=== PATIENT | male | born 1955 | race Caucasian/White ===

== ENCOUNTER 2016-11-27 06:39 | Inpatient (IN) | payer BC, OTHER ==
[2016-11-04 08:29] VITALS: Ht 177.8 cm; Wt 97.4 kg
--- NOTE | 2016-11-04 09:02 | PAT Medication Instructions ---
Service Date Nov 04, 2016. Current Home Medication List Amlodipine (Norvasc), 5 MG PO QPM Benazepril Hcl (Benazepril), 10 MG PO QPM Fish Oil (Toledo-3), 2 TAB PO QPM Hydrochlorothiazide (Hctz), 25 MG PO QPM Ibuprofen Tab (Advil), 600 MG PO PRN Metformin Hcl (Glucophage), 500 MG PO BID Niacin (Niacin), 500 MG PO QPM Medication Instructions For Your Scheduled Surgery Ibuprofen Tab (Advil), 600 MG PO PRN (check with surgeon for instructions: - Hold the following medications 2 weeks prior to surgery: Fish Oil (Toledo-3), 2 TAB PO QPM - Hold the following medications 48 hours prior to surgery: Metformin Hcl (Glucophage), 500 MG PO BID - Hold the following medications as scheduled the night before surgery: Benazepril Hcl (Benazepril), 10 MG PO QPM Niacin (Niacin), 500 MG PO QPM - Take the following medications as scheduled the night before surgery: Hydrochlorothiazide (Hctz), 25 MG PO QPM Amlodipine (Norvasc), 5 MG PO QPM If you have any questions please call us at [phone] (Roselia Rodriguez PA-C) or [phone] or [phone]
--- NOTE | 2016-11-04 09:38 | DIAGNOSTIC IMAGING REPORT ---
CHEST PREADMISSION(PA/LAT) HISTORY: Preop. COMPARISON: None. FINDINGS: The lungs are clear. Cardiac silhouette is normal in size. No pleural effusions. No pneumothorax. IMPRESSION: No acute process. Electronically signed by: Manav Xavier M.D. 11/04/2016 9:36 AM Dictated Date/Time: 11/04/2016 9:35 AM
[2016-11-04 10:18] LABS: BASO % 0.4 %; BASO ABS # 0.02 K/uL (0-0.2); COMPLETE YES; EOS % 1.7 %; HEMATOCRIT 40.6 % (42-52); IG% 0.4 %; LYMPH % 38.3 %; LYMPH ABS # 2.08 K/uL (1.2-3.4); MEAN CELL VOLUME 81.9 fL (80-100); MEAN CORPUSCULAR HEMOGLOBIN 29.6 pg (25-34); MEAN CORPUSCULAR HGB CONC 36.2 g/dl (32-36); MEAN PLATELET VOLUME 9.3 fL (7.4-10.4); MONO % 8.5 %; NEUT % 50.7 %; PLATELET COUNT 221 K/uL (130-400); RED BLOOD COUNT 4.96 M/uL (4.7-6.1); WHITE BLOOD COUNT 5.43 K/uL (4.8-10.8)
[2016-11-04 10:31] LABS: INR 1.1 (0.9-1.1); PARTIAL THROMBOPLASTIN RATIO 1.3; PROTHROMBIN TIME (PATIENT) 11.6 SECONDS (9.0-12.0)
--- NOTE | 2016-11-22 01:06 | HISTORY & PHYSICAL EXAMINATION ---
DATE OF ADMISSION: 11/27/2016 CHIEF COMPLAINT: Left knee pain, discomfort and stiffness. HISTORY OF PRESENT ILLNESS: A 61-year-old gentleman who has had a long history of intermittent on and off knee pain and discomfort. He describes it has gotten worse over time. In the past, it was more stiffness, but now it has become more and more painful. The pain is mostly on the medial side of his knee. It is increased with weightbearing. The more active he is the more it hurts. He has tried multiple medicines without much relief. He has had injections in the past which have not worked and does not want any more. He would like to have his knee replaced. PAST MEDICAL HISTORY: 1. Hypertension. 2. Elevated cholesterol. 3. Sleep apnea. 4. Diabetes x1 year. 5. Mild obesity with BMI of 31. PAST SURGICAL HISTORY: Include: 1. Carpal tunnel release on the right. 2. Skin graft for left shoulder and neck. ALLERGIES: STATIN DRUGS. CURRENT MEDICINES: Include: 1. Hydrochlorothiazide 2. Niacin. 3. Benazepril 10 mg a day. 4. Ambien 5 mg a day. 5. Fish oil twice a day. 6. Metformin 500 mg twice a day. SOCIAL HISTORY: Significant for a 61-year-old male. He is . FAMILY HISTORY: Noncontributory. REVIEW OF SYSTEMS: Significant for diabetes. He has had diabetes for a year. Denies any chest pain or shortness of breath. No history of DVT or PE. PHYSICAL EXAMINATION: GENERAL: Reveals a healthy, pleasant middle-aged male, looking in pretty good health. HEENT: Benign. NECK: Supple. No lymphadenopathy. LUNGS: Clear to auscultation. HEART: Regular rate and rhythm. ABDOMEN: Soft, nontender, nondistended. EXTREMITIES: Grossly neurovascularly intact except as follows: Examination of left knee reveals the patient walks with a slight bit of a limp. He has got varus alignment to his knee. Small varus thrust. He is tender over the medial joint line with some bony hypertrophy. Range of motion about 5 degrees short of full extension, 120 degrees of flexion. Small knee effusion. No instability. No pain with hip motion. X-RAYS: X-rays of the left knee were reviewed. It shows advanced left knee medial compartment DJD. He has got complete loss of his medial joint space. He has got osteophytes off the medial femoral condyle and medial tibial plateau. He has got subchondral sclerosis. ASSESSMENT: A 61-year-old male with longstanding left knee degenerative joint disease with limited response to conservative care. Symptoms progressed and become more painful and he would like to have his knee replaced. He is not interested in further conservative care. PLAN: We will take him to the operating room and do a left total knee replacement. The risks and benefits of this procedure were explained to the patient including but not limited to DVT, PE, , infection, neurological injury, vascular injury, bleeding problem, pain, limited range of motion, stiffness, failure to relieve her symptoms, incomplete relief of symptoms, need for further surgery in the future, fracture, leg length inequality, nerve palsy and etc. The patient understands and agrees and informed consent was obtained. We did talk to him about holding his benazepril in morning of surgery and the metformin 2 days preop. He will likely need insulin sliding scale coverage while in the hospital. He is planning to be discharged to home with the [facility] home health program. LONG
[~2016-11-27] VITALS: Ht 177.8 cm; Wt 97.4 kg
[2016-11-27] VITALS (10 sets, daily range): BP systolic 107–166; BP diastolic 66–88; PULSE 66–79; TEMP 36.6–36.9; O2SAT 93–98
[~2016-11-27 06:39] MED LIST: ACETAMINOPHEN 500 MG TAB PO SCH; AMLO-110 PO; BUPIVACAINE LIPOSOME 266 MG, BUPIVACAINE/EPINEPHRINE INJ 50 ML, SODIUM CHLORIDE 0.9% PF... INFIL SCH; CEFAZOLIN 2000 MG/60 ML D5W 60 ML IV SCH; FAMOTIDINE 20 MG TAB PO SCH; GABAPENTIN 300 MG CAP PO SCH; GLC/500 PO; HYDR25TA4 PO; IBUP-103 PO; LACTATED RINGER'S 1000ML 1,000 ML IV SCH; LACTATED RINGER'S 1000ML 500 ML IV ONE; LACTATED RINGER'S 1000ML IV SCH; LTN/10 PO; METOCLOPRAMIDE HCL 10 MG TAB PO SCH; NIAC500T11 PO; OMEG10007 PO; SCOPOLAMINE 1.5 MG TDSY TD SCH; TRANEXAMIC ACID INJ 1,000 MG in SODIUM CHLORIDE 0.9% 100ML 100 ML IV SCH
--- NOTE | 2016-11-27 06:51 | History & Physical Bridge Note ---
H&P Re-Evaluation Bridge Note: I have examined the patient, reviewed the History & Physical and in the interval since the performance of the History & Physical I have noted the following changes of clinical significance: No changes noted
[2016-11-27] MEDS ORDERED: BUPIVACAINE 0.5 % 5 MG/1 ML PF 10ML VIAL ONE (07:11)
[2016-11-27] MEDS ORDERED: BUPIVACAINE 0.25% 30 ML VIAL ONE (07:12)
[2016-11-27] MEDS ORDERED: MIDAZOLAM HCL 1 MG/ML 2ML VIAL ONE ×2 (07:49→08:36)
[2016-11-27] MEDS ORDERED: SODIUM CHLORIDE 0.9% PF 50 ML VIAL ONE (08:54)
[2016-11-27] MEDS ORDERED: BUPIVACAINE/EPINEPHRINE 0.25% 1:200,000 30 ML VIAL ONE (08:54)
[2016-11-27] MEDS ORDERED: BUPIVACAINE LIPOSOME 1/3% 266 MG/20 ML VIAL INFIL ONE (08:54)
[2016-11-27] MEDS ORDERED: BACITRACIN 50000 UNIT VIAL ONE (08:54)
[2016-11-27] MEDS ORDERED: PROPOFOL IV EMULSION 10 MG/ML 20 ML VIAL IV ONE (10:10)
[2016-11-27] MEDS ORDERED: LIDOCAINE HCL 2% 2 ML VIAL (20MG/ML) ONE (10:10)
[2016-11-27] MEDS ORDERED: HYDROmorphone INJ 1 MG/ML SYR IV PRN (10:15)
[2016-11-27] MEDS ORDERED: FENTANYL CITRATE INJ 50 MCG/1 ML 2 ML VIAL IV PRN (10:15)
[2016-11-27] MEDS ORDERED: ONDANSETRON INJ 2 MG/ML 2 ML VIAL IV PRN ×2 (10:15→11:00)
[2016-11-27] MEDS ORDERED: LABETALOL HCL IV 5 MG/ML 20ML IV PRN (10:15)
[2016-11-27] MEDS ORDERED: ATROPINE SULFATE 0.1 MG/ML 5ML SYR IV PRN (10:15)
[2016-11-27] MEDS ORDERED: EpHEDrine SULFATE INJ 50 MG/ML AMP IV PRN (10:15)
[2016-11-27] MEDS ORDERED: MEPERIDINE HCL 25 MG/ML CARP IV PRN (10:15)
--- NOTE | 2016-11-27 10:47 | [facility] Post Operative Brief Note ---
Immediate Operative Summary Operative Date Nov 27, 2016. Pre-Operative Diagnosis Left Knee Degenerative Joint Disease Post-Operative Diagnosis Left Knee Degenerative Joint Disease Procedure(s) Performed Left Total Knee Arthroplasty, Cemented Surgeon Dr. Alvarado Technical Assistance Consultant Surgeon(s) Wesly David PA-C Estimated Blood Loss 50mL Findings Left Knee DJD Fluids (cc crystalloids) 1500 cc Specimens A: Left Knee Bone and Tissue Drains None Anesthesia Spinal Complication(s) None Disposition Recovery Room / PACU
[2016-11-27] MEDS ORDERED: GLUCOSE 10 TABS/TUBE PO PRN (11:00)
[2016-11-27] MEDS ORDERED: BISACODYL 10 MG SUPP PR PRN (11:00)
[2016-11-27] MEDS ORDERED: METOCLOPRAMIDE HCL INJ 5 MG/ML 2 ML VIAL IV PRN (11:00)
[2016-11-27] MEDS ORDERED: MAGNESIUM HYDROXIDE SUSP 30 ML UDC PO PRN (11:00)
[2016-11-27] MEDS ORDERED: ZOLPIDEM TARTRATE 5 MG TAB PO PRN (11:00)
[2016-11-27] MEDS ORDERED: SILVER SULFADIAZINE 1% CR 50 GM JAR EXT PRN (11:00)
[2016-11-27] MEDS ORDERED: ALUMINUM/MAGNESIUM/SIMETH (MAALOX MAX) 30 ML UDC PO PRN (11:00)
[2016-11-27] MEDS ORDERED: GLUCAGON FOR INJ 1 MG VIAL SQ PRN (11:00)
[2016-11-27] MEDS ORDERED: GLUCOSE 40% GEL 15 GM TUBE PO PRN (11:00)
[2016-11-27] MEDS ORDERED: TAMSULOSIN HCL 0.4 MG CAP PO PRN (11:00)
[2016-11-27] MEDS ORDERED: DEXTROSE 50% 50 ML SYR IV PRN (11:00)
--- NOTE | 2016-11-27 11:10 | DIAGNOSTIC IMAGING REPORT ---
LEFT KNEE 1 OR 2 VIEWS ROUTINE CLINICAL HISTORY: Left knee degenerative joint disease. Arthroplasty. COMPARISON: None FINDINGS: Alignment of the total left knee arthroplasty is anatomic. There is no fracture or unexpected radiopaque foreign body. There are skin ritesh. IMPRESSION: Expected findings following total left knee arthroplasty. Electronically signed by: Wilbur Ambriz M.D. 11/27/2016 11:09 AM Dictated Date/Time: 11/27/2016 11:07 AM
--- NOTE | 2016-11-27 11:14 | OPERATIVE REPORT ---
DATE OF OPERATION: 11/27/2016 SURGEON: Dr. Toney Alvarado. MERCHANDISE PROCESSOR: EZ Castellon PREOPERATIVE DIAGNOSIS: Left knee degenerative joint disease. POSTOPERATIVE DIAGNOSIS: Same. PROCEDURE PERFORMED: Left cemented posterior stabilized total knee arthroplasty. COMPLICATIONS: None. ESTIMATED BLOOD LOSS: 30 mL. FLUID REPLACEMENT: 1500 mL crystalloid fluid replacement. ANESTHESIA: Spinal with adductor canal block. DRAINS: None. SPECIMENS: Left knee sent for pathology. OPERATIVE INDICATIONS: The patient is a 61-year-old male who had a long history of left knee pain and discomfort. He describes it has gotten worse over the years. He has been through extensive conservative treatment, which was not really very effective. He just put up with the pain for the past several years. It has become more unbearable and he would like to proceed with total knee arthroplasty. OPERATIVE FINDINGS: Operative findings revealed advanced left knee DJD. He had pretty extensive grade 4 changes of the medial femoral condyle and the anterior medial tibial plateau. He had grade 4 changes of the patellofemoral joint. Moderate size joint effusion. Varus alignment to his knee. OPERATIVE IMPLANTS: Operative implants consisted of: 1. A Biomet Vanguard size 67.5 left posterior stabilized femoral component. 2. Biomet size 71 tibial tray. 3. A 12-mm posterior stabilized polyethylene insert. 4. A 34 x 8.5 all poly patella. OPERATIVE PROCEDURE: The patient was taken to the operating room, identified and placed on the operating table in the supine position. All contact areas were appropriately padded. IV antibiotics were provided by anesthesia team. A spinal anesthetic and adductor canal block had been provided in the holding area. Khan catheter was placed in sterile fashion. Left thigh tourniquet was then placed and left lower extremity was then prepped and draped in the usual sterile fashion. The left leg was elevated and exsanguinated with Esmarch and tourniquet was placed at 300 mmHg. An anterior approach to the left knee was then performed through a longitudinal incision centered over the patella. Sharp dissection was carried out through the subcutaneous tissues and down to the level of the extensor mechanism. A medial parapatellar arthrotomy incision was made. Some subperiosteal dissection was carried out medially. The fat pad was resected from beneath the patellar tendon. The lateral patellofemoral ligament was released. The patella was everted and knee was flexed. The osteophytes were taken off the distal femur. The ACL and PCL were then released from the distal femur and the tibia subluxated anteriorly. The external tibial alignment jig was then placed in the anterior face of the tibia and adjusted 16 mm medially. Proximal tibial cut was made to remove about a millimeter of bone from the most deficient aspect of the medial tibial plateau. The tibia was then sized to a size 71. Attention was then drawn to the femur. The distal femur was entered with a sharp drill bit. Intramedullary canal was suctioned. A left 6-degree valgus cutting guide was placed. Distal femoral cutting block was pinned in place. Distal femoral cut was made to take an additional 3 mm of bone off the distal femur. The femur was then sized to a size 67.5. We did downsize this just slightly. The AP cutting block was pinned parallel to the epicondylar axis, which was 5 degrees of external rotation. The anterior cut, anterior chamfer, posterior cut, and posterior chamfer cuts were made. Box cutting guide was placed and adjusted slightly lateral and the box cut was made. The knee was flexed. The remnants of the medial and lateral meniscus were excised. The osteophytes were taken off the posterior aspect of the femur. Trial femoral component was placed. Tibial tray was pinned in maximum external rotation and the drill and stem punch were used to create defect in proximal tibia for the tibial tray. The knee was then trialed and the 12-mm insert fit most appropriately. Attention was then drawn to the patella. The patella was cleaned of all soft tissues. Patella thickness measured 23 mm in thickness and it was cut down to 14. It was sized to a size 34 patella. Lug holes were drilled for a 34 patella. Lateral osteophyte was removed. Patella button was placed. Knee was taken through range of motion and the patella tracked nicely with no thumbs test. Attention was then drawn toward placement of the permanent components. All trial components were removed. A bone plug was placed in the distal femur to limit blood loss. A double batch of Palacos G cement was mixed. A left size 67.5 posterior stabilized femoral component, size 71 tibial tray, a 12-mm posterior stabilized polyethylene insert, and a 34 x 8.5 all poly patella then cemented in place. Knee was brought out into full extension until cement hardened. A final cement check was then performed. Pericapsular tissues were injected with a total of 100 mL of a combination of 20 mL of Exparel, 30 mL normal saline, and 50 mL of 0.25% Marcaine with epinephrine. The patient did receive 1 gram of tranexamic acid. The tourniquet was then let down for final tourniquet time of 57 minutes. Hemostasis was assured with use of electrocautery. The extensor mechanism was then closed with a combination of #1 PDS suture and #1 Vicryl suture in a [id number] fashion. Extensor mechanism was checked and found to be intact. The subcutaneous tissues were then closed with 2-0 Dexon suture in a buried interrupted fashion. Skin was closed skin ritesh. Leg was then cleaned and dried and a sterile dressing of Xeroform, 4 x 4, sterile cast padding and Philip bandage were applied. The patient then transferred to the recovery room in stable condition. The patient tolerated the procedure well with no complications. All needle and sponge counts were correct at the end of the operation. I attest to the content of the Intraoperative Record and any orders documented therein. Any exceptions are noted below. MTDD
[2016-11-27] MEDS: ACETAMINOPHEN 500 MG TAB PO SCH ×2 (13:27→22:06)
[2016-11-27] MEDS: SODIUM CHLORIDE 0.9% 1000ML 1,000 ML IV SCH ×2 (13:27→20:41)
[2016-11-27] MEDS: KETOROLAC TROMETHAMINE 30 MG/ML VIAL IV. SCH ×3 (13:28→23:48)
--- NOTE | 2016-11-27 13:28 | PROGRESS NOTE ---
DATE: 11/27/2016 SUBJECTIVE: A 61-year-old gentleman postop from a left knee replacement. He is doing well. Not having any pain yet. Just starting to get a little function in his foot. Denies any chest pain or shortness of breath. Not feeling dizzy or lightheaded. OBJECTIVE: VITAL SIGNS: Temperature is 36.9. Vital signs stable. GENERAL: Reveals a pleasant, middle-aged male. He is lying in bed, looks pretty comfortable. He is talking to his family. LUNGS: Clear to auscultation. HEART: Has a regular rate and rhythm. ABDOMEN: Soft, nontender, nondistended. EXTREMITIES: Grossly neurovascularly intact except as follows: Examination of the left lower extremity reveals the leg is well aligned. Dressing is clean, dry, and intact. He is just starting to get a little bit of wiggling of his toes. Cap brisk refill with good distal pulses. X-RAYS: X-rays of the knee were reviewed. It shows a cemented posterior stabilized total knee arthroplasty be in good position. No signs of problems. ASSESSMENT: A 61-year-old gentleman postop from a left knee replacement, doing well. Just starting to get the function back in his leg. His pain is controlled. PLAN: 1. DVT prophylaxis including thigh-high TEDs, SCDs, and aspirin twice a day. 2. PT/OT. Weight bear as tolerated. Left total knee protocol. 3. Pain control. Doing well with current pain regimen. 4. IV antibiotics x24 hours. 5. Disposition. He is planning to be discharged to home with home health once medically stable and recovered.
[2016-11-27] MEDS: INSULIN HUMAN REGULAR SC SCH ×3 (13:32→20:40)
--- NOTE | 2016-11-27 13:42 | Anesthesiology Progress Note ---
Anesthesia Post Op Note Date & Time Nov 27, 2016 at 13:41 Vital Signs Pain Intensity: 0.0 Vital Signs Past 12 Hours Date Time Temp Pulse Resp B/P Pulse Ox O2 Delivery O2 Flow Rate FiO2 11/27/16 13:00 36.9 66 18 160/81 97 Nasal Cannula 2.0 11/27/16 12:29 36.7 72 16 131/84 96 Nasal Cannula 2.0 11/27/16 12:23 Nasal Cannula 2.0 11/27/16 12:19 36.9 76 16 111/69 97 Nasal Cannula 2.0 11/27/16 12:17 97 Nasal Cannula 2.0 11/27/16 11:51 114/68 11/27/16 11:48 70 16 96 11/27/16 11:48 70 16 11/27/16 11:46 115/71 11/27/16 11:43 68 18 11/27/16 11:43 37.3 11/27/16 11:43 70 18 96 11/27/16 11:40 132/73 11/27/16 11:38 68 16 97 11/27/16 11:38 69 16 11/27/16 11:37 69 21 11/27/16 11:37 70 21 95 11/27/16 11:36 111/74 11/27/16 11:32 74 16 97 11/27/16 11:32 72 16 11/27/16 11:31 136/85 11/27/16 11:27 73 14 11/27/16 11:27 73 14 97 11/27/16 11:26 118/68 11/27/16 11:22 80 20 11/27/16 11:22 83 20 96 11/27/16 11:21 113/66 11/27/16 11:17 79 15 11/27/16 11:17 80 15 96 11/27/16 11:15 108/70 11/27/16 11:12 78 18 98 11/27/16 11:12 76 18 11/27/16 11:11 116/71 11/27/16 11:07 81 14 100 11/27/16 11:07 82 14 11/27/16 11:06 121/61 11/27/16 11:05 75 13 11/27/16 11:05 75 13 99 11/27/16 11:00 80 20 11/27/16 11:00 83 20 112/72 100 11/27/16 10:55 95 18 114/71 100 11/27/16 10:55 96 18 11/27/16 10:51 108/66 11/27/16 10:50 37.5 80 16 108/66 100 Mask 10 11/27/16 07:25 98 Room Air 11/27/16 07:22 36.8 79 16 166/87 98 Room Air Notes Mental Status: alert / awake / arousable, participated in evaluation Pt Amnestic to Procedure: Yes Nausea / Vomiting: adequately controlled Pain: adequately controlled Airway Patency, RR, SpO2: stable & adequate BP & HR: stable & adequate Hydration State: stable & adequate Anesthetic Complications: no major complications apparent
[2016-11-27] MEDS: CEFAZOLIN IV 2,000 MG in DEXTROSE 5% 50ML 50 ML IV SCH ×2 (15:52→23:48)
[2016-11-27] MEDS: CHECK SCOPOLAMINE PATCH PLACEMENT SCH ×2 (15:52→23:33)
[2016-11-27] MEDS ORDERED: TRANEXAMIC ACID INJ 1,000 MG in SODIUM CHLORIDE 0.9% 100ML 100 ML IV SCH (17:00)
[2016-11-27] MEDS: FERROUS GLUCONATE 324 MG TAB PO SCH (17:48)
[2016-11-27] MEDS: OXYCODONE HCL IR 5 MG TAB (IMMEDIATE RELEASE) PO PRN (19:13)
[2016-11-27] MEDS: HYDROCHLOROTHIAZIDE 25 MG TAB PO SCH (20:38)
[2016-11-27] MEDS: ENALAPRIL MALEATE 10 MG TAB PO SCH (20:39)
[2016-11-27] MEDS: NIACIN 500 MG TAB IMMEDIATE RELEASE PO SCH (20:41)
[2016-11-27] MEDS: AMLODIPINE BESYLATE 5 MG TAB PO SCH (20:41)
[2016-11-27] MEDS: DOCUSATE SODIUM 100 MG CAP PO SCH (20:41)
[2016-11-27] MEDS: ASPIRIN 325 MG ECTAB PO SCH (20:41)
[2016-11-27] MEDS: TAPENTADOL ER 50 MG TABCR PO SCH (20:44)
[2016-11-28 03:56] VITALS: BP 119/73; PULSE 60; TEMP 36.7; O2SAT 96
[2016-11-28] MEDS: SODIUM CHLORIDE 0.9% 1000ML 1,000 ML IV SCH (04:42)
[2016-11-28] MEDS: ACETAMINOPHEN 500 MG TAB PO SCH ×3 (06:24→21:46)
[2016-11-28] MEDS: KETOROLAC TROMETHAMINE 30 MG/ML VIAL IV. SCH ×4 (06:25→23:16)
[2016-11-28 06:37] LABS: HEMATOCRIT 33.1 % (42-52); MEAN CELL VOLUME 84.9 fL (80-100); MEAN CORPUSCULAR HEMOGLOBIN 29.7 pg (25-34); MEAN PLATELET VOLUME 8.9 fL (7.4-10.4); PLATELET COUNT 183 K/uL (130-400)
[2016-11-28 06:51] VITALS: BP 109/66; PULSE 61; TEMP 36.7; O2SAT 97
[2016-11-28 07:07] LABS: BUN/CREATININE RATIO 13.3 (10-20); CALCIUM 8.2 mg/dl (8.5-10.1); CREATININE 1.1 mg/dl (0.60-1.40); POTASSIUM 3.5 mmol/L (3.5-5.1)
[2016-11-28] MEDS: CHECK SCOPOLAMINE PATCH PLACEMENT SCH ×3 (07:42→23:18)
[2016-11-28] MEDS: OXYCODONE HCL IR 5 MG TAB (IMMEDIATE RELEASE) PO PRN ×3 (07:47→23:52)
--- NOTE | 2016-11-28 08:03 | PROGRESS NOTE ---
DATE: 11/28/2016 SUBJECTIVE: A 61-year-old gentleman postop day #1 from a left knee replacement. He is doing pretty well. Some moderate amount of pain overnight, doing better this morning. Denies any chest pain or shortness of breath. Not feeling dizzy or lightheaded. OBJECTIVE: VITAL SIGNS: Temperature 36.7. Vital signs stable. GENERAL: Reveals a healthy, pleasant, middle-aged male. He is sitting up in bed, looks pretty comfortable. EXTREMITIES: Examination of the left leg reveals the dressing to be clean, dry and intact. Leg is well aligned. He can dorsiflex and plantarflex his foot appropriately. He is neurologically intact. LABORATORY DATA: Hemoglobin 11.6. Hematocrit 33.1. Electrolytes are stable. ASSESSMENT: A 61-year-old gentleman postop day #1 from left knee replacement, doing pretty well. Pain is controlled. PLAN: 1. DVT prophylaxis including thigh-high TEDs, SCDs, and aspirin twice a day. 2. PT/OT. Weightbearing as tolerated. Left total knee protocol. 3. Pain control, doing pretty well with current pain regimen. 4. Disposition: He is hoping to be discharged to home with some home health once adequately recovered.
--- NOTE | 2016-11-28 08:13 | Anesthesiology Progress Note ---
Anesthesia Post Op Note Date & Time Nov 28, 2016 at 08:12 Vital Signs Vital Signs Past 12 Hours Date Time Temp Pulse Resp B/P Pulse Ox O2 Delivery O2 Flow Rate FiO2 11/28/16 06:51 36.7 61 17 109/66 97 Room Air 11/28/16 03:56 36.7 60 18 119/73 96 Room Air 11/27/16 23:01 36.6 66 16 107/66 94 Room Air Notes Mental Status: alert / awake / arousable, participated in evaluation Pt Amnestic to Procedure: Yes Nausea / Vomiting: adequately controlled Pain: adequately controlled Airway Patency, RR, SpO2: stable & adequate BP & HR: stable & adequate Hydration State: stable & adequate Anesthetic Complications: no major complications apparent
[2016-11-28] MEDS: ASPIRIN 325 MG ECTAB PO SCH ×2 (09:04→21:44)
[2016-11-28] MEDS: MULTIVITAMIN TAB PO SCH (09:04)
[2016-11-28] MEDS: FERROUS GLUCONATE 324 MG TAB PO SCH ×3 (09:04→18:14)
[2016-11-28] MEDS: PANTOprazole SOD 40 MG TAB PO SCH (09:04)
[2016-11-28] MEDS: DOCUSATE SODIUM 100 MG CAP PO SCH ×2 (09:04→21:44)
[2016-11-28] MEDS: TAPENTADOL ER 50 MG TABCR PO SCH ×2 (09:08→21:43)
[2016-11-28] MEDS: INSULIN HUMAN REGULAR SC SCH ×4 (09:08→21:54)
[2016-11-28 10:52] VITALS: BP 109/71; PULSE 71; TEMP 36.8; O2SAT 95
[2016-11-28 15:05] VITALS: BP 142/77; PULSE 59; TEMP 36.8; O2SAT 98
[2016-11-28 15:20] VITALS: BP 106/66; PULSE 91; TEMP 36.9; O2SAT 98
[2016-11-28] MEDS ORDERED: ASPEC325 PO (21:27)
[2016-11-28] MEDS ORDERED: OXYC-57 PO (21:27)
[2016-11-28] MEDS ORDERED: MORP15TA19 PO (21:27)
--- NOTE | 2016-11-28 21:32 | Discharge Instructions ---
Discharge Instructions Date of Service Nov 28, 2016. Admission Reason for Admission: Left Knee Degenerative Joint Disease Discharge Discharge Diagnosis / Problem: Left Knee Replacement Discharge Goals Goal(s): Decrease discomfort, Improve function, Increase independence, Improve disease control, Therapeutic intervention Activity Recommendations Activity Limitations: per Instructions/Follow-up section Weightbearing Status: Left weightbearing . Instructions / Follow-Up Instructions / Follow-Up ACTIVITY RECOMMENDATIONS: Physical Therapy: * You will go to physical therapy three times each week for four to six weeks after your surgery in order to regain your knee range of motion and to retrain your knee to work properly. * It is just as important to make sure you are getting your knee perfectly straight as it is to regain your knee bend. * Taking a pain pill an hour before therapy can help you have a more productive and comfortable therapy session. Home Exercise: * You were shown a series of exercises (heel props, heel slides, etc.) in the hospital. Do these exercises three to four times each day including the exercises you were shown in physical therapy. Walking: * Get up and walk several times each day. For the first four weeks, try not to stand or walk for more than one hour at a time. If you do stand or walk for more than one hour, you will not hurt anything, but your knee and leg will likely swell. * As you feel comfortable, you may change from the walker or crutches to a cane and then to independent walking. MEDICATIONS: New Medicine: * You will likely be taking one or more of these medications: 1. MS Contin - A long-acting pain medication. Take 1 tablet twice a day for the first ten days to decrease your baseline level of pain. 2. Percocet - A quick and shorter-acting pain medication. Take one to two tablets every four to six hours to lessen your pain. 3. Aspirin - Thins your blood to lessen the chance of forming a blood clot. * The most common side effects of pain medicine and iron are nausea and constipation. If nausea or constipation is too much of a problem or if you have any questions about your new medicines or doses, call [facility] at [phone]. We will try to help you manage these issues. VERY IMPORTANT TO READ AND REVIEW" Pain: * The immediate post-operative period after knee replacement surgery is often quite painful. * You are given a prescription for pain medicine. You should take it, as directed, when you need it, especially before physical therapy and before going to bed. Pain that interferes with sleep is very common and can last several months. * You will likely need pain medicine for the first four to six weeks. It will not stop all of the pain. The pain will lessen and as you feel better, you may change to milder pain medicine such as Tylenol. * The most common side effects of pain medicine are nausea and constipation, so don't take more than you need. SPECIAL CARE INSTRUCTIONS: TEDs/Elastic Stockings: * The white elastic stockings help limit swelling and prevent blood clots from forming in your legs. The more you wear them, the more they work. * Wear them for six weeks after knee replacement surgery and four weeks after partial knee replacement. Prevention of Infection: * Take antibiotics one hour before any dental cleaning, dental work, urological procedure, gastrointestinal procedure or any invasive surgery in order to prevent your new joint from getting infected. * You may get the antibiotics from the doctor performing the procedure or you may call our office at before and we will call in a prescription to the pharmacy of your choice. Things to Watch For: * Drainage from the incision site that occurs more than one week after your surgery. * Severely increased knee/leg pain or swelling. * Increased redness at the incision site. * Fever above 102 degrees Fahrenheit. * Unusual chest pain or shortness of breath. * Unusual pain or burning with urination. Call [facility] at with any of the above problems or if you have any questions about your medicines or recovery. FOLLOW UP VISIT: Make an appointment to see your doctor for approximately two weeks after surgery for a progress check and staple removal by calling the office at . Current Hospital Diet Patient's current hospital diet: Diabetes Type 2 Diet Discharge Diet Recommended Diet: Diabetes Type 2 Diet Procedures Procedures Performed: Left Total Knee Arthroplasty, Cemented Pending Studies Studies pending at discharge: no Medical Emergencies . Who to Call and When: Medical Emergencies: If at any time you feel your situation is an emergency, please call [phone] immediately. . Non-Emergent Contact Non-Emergency issues call your: Surgeon . "Provider Documentation" section prepared by Toney Alvarado. . VTE Core Measure Inpt VTE Proph given/why not?: Other Anticoagulation, T.E.D. Stockings, SCD's
[2016-11-28] MEDS: AMLODIPINE BESYLATE 5 MG TAB PO SCH (21:43)
[2016-11-28] MEDS: HYDROCHLOROTHIAZIDE 25 MG TAB PO SCH (21:44)
[2016-11-28] MEDS: ENALAPRIL MALEATE 10 MG TAB PO SCH (21:44)
[2016-11-28] MEDS: NIACIN 500 MG TAB IMMEDIATE RELEASE PO SCH (21:45)
[2016-11-28] MEDS: MoRPHine SULFATE 2 MG/ML CARP IV PRN ×2 (21:47→23:17)
[2016-11-28 23:05] VITALS: BP 129/70; PULSE 71; TEMP 36.9; O2SAT 96
[2016-11-29] MEDS: ACETAMINOPHEN 500 MG TAB PO SCH (06:18)
[2016-11-29] MEDS: KETOROLAC TROMETHAMINE 30 MG/ML VIAL IV. SCH (06:19)
[2016-11-29] MEDS: OXYCODONE HCL IR 5 MG TAB (IMMEDIATE RELEASE) PO PRN (06:20)
[2016-11-29 06:34] VITALS: BP 143/76; PULSE 77; TEMP 36.6; O2SAT 94
[2016-11-29 07:13] VITALS: BP 143/76; PULSE 77; TEMP 36.6; O2SAT 94
[2016-11-29] MEDS: MULTIVITAMIN TAB PO SCH (07:17)
[2016-11-29] MEDS: ASPIRIN 325 MG ECTAB PO SCH (07:18)
[2016-11-29] MEDS: PANTOprazole SOD 40 MG TAB PO SCH (07:18)
[2016-11-29] MEDS: FERROUS GLUCONATE 324 MG TAB PO SCH (07:18)
[2016-11-29] MEDS: DOCUSATE SODIUM 100 MG CAP PO SCH (07:18)
[2016-11-29] MEDS: INSULIN HUMAN REGULAR SC SCH (07:26)
[2016-11-29] MEDS: TAPENTADOL ER 50 MG TABCR PO SCH (07:27)
--- NOTE | 2016-11-29 08:48 | PROGRESS NOTE ---
DATE: 11/29/2016 DATE: 11/29/2016. SUBJECTIVE: A 61-year-old gentleman postop day 2 from a left knee replacement. He is doing pretty well. A little bit more pain last night, but doing better this morning. No chest pain or shortness of breath. Not feeling dizzy or lightheaded. OBJECTIVE: VITAL SIGNS: Temperature 36.6. Vital signs stable. PHYSICAL EXAMINATION: GENERAL: Reveals a healthy, pleasant, middle-aged male. He is sitting up in his bed and looks pretty comfortable. EXTREMITIES: Examination of the left leg reveals the dressing to be in place. Just a trace bit of bloody drainage. Calf is soft and supple. He can dorsiflex and plantarflex his foot appropriately. He is neurologically intact. ASSESSMENT: A 61-year-old gentleman postop day 2 from a left knee replacement, doing pretty well. PLAN: 1. DVT prophylaxis including thigh-high TEDs, SCDs, and aspirin twice a day. 2. PT/OT. Weight bear as tolerated. Left total knee protocol. 3. Pain control. Doing well with current pain regimen. 4. Disposition. Plan to discharge to home with some home health later today.
--- NOTE | 2016-12-11 09:24 | DISCHARGE SUMMARY ---
ADMITTING PHYSICIAN AND SURGEON: Dr. Alvarado. ADMITTING DIAGNOSIS: Left knee degenerative joint disease. SURGERY PERFORMED: Left total knee arthroplasty. SECONDARY DIAGNOSES: Include hypertension, elevated cholesterol, sleep apnea, diabetes, and obesity. CONSULTS: None obtained. HISTORY AND PHYSICAL EXAMINATION: Well documented in the patient's chart. HOSPITAL COURSE: The patient was admitted on 11/27/2016, underwent total knee arthroplasty, tolerated the procedure well. There were no complications. He was transferred to the PACU postoperatively and later to the orthopedic floor for further care. He was given Ancef for antibiotic prophylaxis and OCHOA stockings, SCDs and aspirin for DVT prophylaxis. Hemoglobin, hematocrit and vital signs were monitored during his hospital stay and remained stable. He developed some mild postoperative anemia, did not require any blood transfusions. There were no complications. On postoperative day 2, he is tolerating a diabetic diet. Pain is controlled with oral pain medicine. He is participating in physical therapy and had no signs or symptoms of deep vein thrombosis. On postoperative day 2, he is discharged home and set up with home health services, given printed discharge instructions including prescriptions for aspirin 325 mg b.i.d. and Percocet. Continue his home medicines. Continue physical therapy, weightbearing as tolerated, OCHOA stockings. Follow up in 10-12 days or sooner if there are any problems or concerns.
== END 2016-11-29 10:05 | disposition home health service (06) | DRG 470 ==
LOC: ENRESERVTM → ENRESERVDT → ENRESERV → C.ACU 06:39 → C.3E 10:52
PROVIDERS: ADMIT Orthopaedic Surgery Sports Medicine; ATTEND Orthopaedic Surgery Sports Medicine
PROC: 0SRD0J9 Replacement of Left Knee Joint with Synthetic Substitute, Cemented, Open Approach (ICD-10-PCS; principal; 2016-11-27 09:25)
DX: M17.12 Unilateral primary osteoarthritis, left knee (principal); E66.9 Obesity, unspecified; E78.00 Pure hypercholesterolemia, unspecified; G47.33 Obstructive sleep apnea (adult) (pediatric); I10 Essential (primary) hypertension; E11.9 Type 2 diabetes mellitus without complications; M21.162 Varus deformity, not elsewhere classified, left knee; M25.462 Effusion, left knee; Z87.891 Personal history of nicotine dependence; Z79.899 Other long term (current) drug therapy; Z79.1 Long term (current) use of non-steroidal anti-inflammatories (NSAID); Z79.84 Long term (current) use of oral hypoglycemic drugs; Z68.31 Body mass index [BMI] 31.0-31.9, adult